=== PATIENT | male | born 1970 | race Caucasian/White ===

== ENCOUNTER 2020-04-27 13:25 | Outpatient (CLI) | payer BC, SELFPAY ==
--- NOTE | 2020-04-27 06:00 | DI.RAD_ITS ---
EXAM: XR PAIN CLINIC CERVICAL SP 2V CLINICAL HISTORY: Dx: Cervical Radiculopathy TECHNIQUE: 2D and realtime digital imaging was performed. CONTRAST MATERIAL: None. COMPARISON: No exams were available for comparison FINDINGS: Fluoroscopy was provided for cervical epidural injections. Radiologist not present. Fluoro time: 25.8 seconds Cumulative dose: 3.09 mGy IMPRESSION:
[2020-04-27 13:40] VITALS: BP 121/92; PULSE 76; RESP 17; TEMP 36.8; O2SAT 98
[2020-04-27] MEDS: Lactated Ringers 1,000 ML 80 ML IV (14:07)
[2020-04-27] MEDS: Midazolam 2 MG/2 ML VIAL IVP ×2 (14:13→14:15)
[2020-04-27 14:22] VITALS: BP 135/80; PULSE 69; RESP 11; O2SAT 94
--- NOTE | 2020-04-27 14:26 | PDOC.PAIN ---
Pain Clinic Procedure Note Procedure Note Procedure Note: Date of Service: April 27, 2030 Cervical Epidural Steroid Injection ISRAEL TIJERINA has been referred to the [facility] for interlaminar cervical epidural steroid injection. COMMENTS: I did review his evaluation in our clinic from 03/13/20 and his recent cervical spine MRI. Dx: Cervical radiculopathy Patient was interviewed and the medical record reviewed. There were no medical, pharmacologic, radiographic or other structural contraindications to attempting fluoroscopically guided epidural steroid injection. Risks and expected side effects as well as potential benefit of the procedure were reviewed and voiced concerns addressed. The printed consent form was signed and witnessed. Standard time-out procedure was performed. The patient was placed in the prone position on the fluoroscopy table and automated blood pressure cuff and pulse oximeter applied. The skin entry point for entering the epidural space by a midline C7-T1 interlaminar approach was identified under fluoroscopy and marked. Following thorough Chlorhexadine preparation of the skin and draping and 1% lidocaine infiltration of the skin entry point and subcutaneous tissues, an 18 gauge Tuohy needle was placed under fluoroscopic guidance and with loss of resistance technique into the epidural space. Upon needle placement and loss of resistance there were no paresthesiae or return of blood or CSF through the needle. 1ml of Omnipaque 240 were injected with clear epidural spread in the A/P, oblique views. 15mg of preservative-free Dexamethasone with 1ml sterile normal saline were injected through the needle with no unusual discomfort expressed. The needle was removed without difficulty. A bandage was placed. Vital signs were stable throughout the procedure and were as recorded in the docflowsheet by the nursing staff. If given, dosages of intravenous drugs for anxiolysis and analgesia were documented in MAR. Follow up plans and appointments were discussed. Post procedure instruction was given as documented in nursing documentation and having met discharge criteria and was discharged from the [facility]. COMMENTS: This procedure can be completed up to 3 times per 12 months if it is found to be effective. He did receive 2 mg of IV Versed prior to this procedure as he was very anxious. Josr Golden DO, MPH Pain Management CC:
[2020-04-27] MEDS: Dexamethasone Sod. Phos./Pres-Free 10 MG/ML VIAL IJ (14:31)
[2020-04-27] MEDS: Omnipaque 240 MG/ML 50 ML BTL IJ (14:31)
== END 2020-04-27 13:26 | disposition home or self-care (01) ==
LOC: PC 13:26
PROVIDERS: Visit Provider Preventive Medicine Occupational Medicine
DX: M54.12 Radiculopathy, cervical region (principal)
CPT/HCPCS: 62321; 72040; J2250; Q9967

== ENCOUNTER 2024-12-20 12:52 | Emergency (ER) | payer MEDICAID, SELFPAY ==
[2024-12-20 13:01] VITALS: BP 144/93; PULSE 89; RESP 15; TEMP 36.9; O2SAT 96
--- NOTE | 2024-12-20 14:30 | DI.US_ITS ---
Exam(s) US SCROTUM EXAM: US SCROTUM CLINICAL HISTORY: pain, swelling. TECHNIQUE: Scrotal ultrasound performed using grayscale, color-flow and spectral Doppler analysis. COMPARISON: No exams were available for comparison FINDINGS: RIGHT TESTICLE: 5.7 x 3.3 x 3.1 cm, enlarged. Echogenicity: Normal. Contour: Smooth. Mass: None seen. Microlithiasis: None. Hydrocele: Large septated hydrocele measuring 7 x 3 x 5.1 cm. Varicocele: None. Hernia: No peristalsing bowel loop identified. Epididymis: Enlarged, hyperemic epididymis. Spermatocele in the head measuring measuring 2.3 cm. Scrotum: Normal. LEFT TESTICLE: 4.7 x 2.2 x 2.3 cm Echogenicity: Normal. Contour: Smooth. Mass: None seen. Microlithiasis: None. Hydrocele: None. Varicocele: None. Hernia: No peristalsing bowel loop identified. Epididymis: Normal. Scrotum: Normal. DOPPLER: Color: Extreme hyperemia to the right testicle and epididymis. Duplex: Bilateral testicular arterial waveforms visualized. IMPRESSION: Right epididymo-orchitis. Septated right hydrocele. DATA REPOSITORY:
--- NOTE | 2024-12-20 15:49 | ED.GENADUL_ITS ---
Discharge Plan Disposition Patient Disposition: Home Condition: Stable Discharge Details Clinical Impression: Acute epididymo-orchitis Primary Care Provider: Unknown,Unknown ED Provider: Jacob Espana Home Meds and New Rx's Prescriptions: New levofloxacin 750 mg tablet 750 mg PO DAILY Qty: 13 0RF morphine 15 mg tablet 15 mg PO BID PRN (Reason: severe pain (scale score 7-10)) Qty: 14 0RF Changed acetaminophen 650 mg Tablet Extended Release 650 mg PO Q8H PRNQty: 0 0RF Discontinued multivitamin Tablet 1 tab PO DAILY gabapentin 600 mg Tablet 600 mg PO TID Rx Instructions: 600 mg AM, 600 mg Noon, 1200 mg HS meloxicam 15 mg Tablet 15 mg PO DAILY Patient Comments: Pt no longer taking this.HE Discharge Instructions Instructions: Epididymitis and orchitis, Morphine (Systemic) Additional Instructions: Please stop current antibiotics cefdinir. Please start new antibiotic Levaquin (levofloxacin). Please take full course of Levaquin (levofloxacin) as prescribed. You were given initial dose here in the emerged ferment. Your next dose is tomorrow. Please follow-up with urology. Call tomorrow to schedule an appointment. Please follow-up with your primary care physician. Return to the emergency department immediately for any worsening or new concerning symptoms. Stand Alone Forms: Portal Information Referrals: Charly Latif MD [ [facility] STAFF PHYSICIAN, Urology] HPI General Mode of arrival: ambulatory . Date/Time Provider Initiated Documentation: 12/20/24 13:10 . Limitations to Documentation: no limitations . Information obtained by: patient . HPI Narrative: HISTORY OF PRESENT ILLNESS This is a 54-year-old male with a history of a congenital single kidney presenting with right testicular swelling. He is accompanied by his sister. The patient was admitted to [facility] on 12/15/2024 due to dehydration and significant enlargement of his right testicle, which was diagnosed as orchitis. He was discharged on 12/17/2024 with a prescription for cefdinir. Despite the treatment, he reports no improvement in his condition and continues to experience pain. He has been compliant with the cefdinir regimen but notes that the swelling in his testicle has not subsided and occasionally appears to increase in size. He reports no recent sexual activity, with the last encounter being two years ago, and has no history of sexually transmitted diseases. He also reports no dysuria or rashes. He is uncertain about any specific bacterial growth from cultures as he left the paperwork at home. He was advised to consult his primary care physician if his symptoms worsened, which they have, prompting him to seek a second opinion. He reports no recent sore throat or respiratory illness. He also reports no abnormal penile discharge. The onset of his symptoms was sudden, occurring on 12/15/2024, and was preceded by a general feeling of malaise and difficulty urinating. He has received all his childhood vaccinations. PAST SURGICAL HISTORY: He has undergone carpal tunnel surgery and had a plate inserted in his wrist. Related Data Home Medications Medication Instructions Recorded Confirmed acetaminophen 650 mg 650 mg PO Q8H PRN #0 tabs 12/20/24 tablet,extended release levofloxacin 750 mg tablet 750 mg PO DAILY #13 tabs morphine 15 mg immediate release 15 mg PO BID PRN vangie re pain 12/20/24 tablet (scale score 7-10) #14 tabs Previous Rx's Medication Instructions Recorded acetaminophen 650 mg 650 mg PO Q8H PRN #0 tabs tablet,extended release levofloxacin 750 mg tablet 750 mg PO DAILY #13 tabs morphine 15 mg immediate release 15 mg PO BID PRN vangie re pain 12/20/24 tablet (scale score 7-10) #14 tabs Allergies Allergy/AdvReac Type Severity Reaction Status Date / Time No Known Allergies Allergy Unverified 12/20/24 13:07 General Stated Complaint: Male Reproductive Problem ROCIO: 3 Review of Systems All systems reviewed & are unremarkable except as noted in HPI and below Constitutional Constitutional: Reports fatigue and Denies fever(s) Genitourinary Genitourinary: Reports as per HPI Endocrine Endocrine: Reports fatigue Exam Const General: cooperative and no acute distress [facility] Head: normocephalic and atraumatic Mouth: moist mucous membranes Eyes Conjunctivae: normal conjunctivae Sclera: normal sclerae Neck Neck: trachea midline and supple Resp Auscultation: clear to auscultation bilaterally, no rales, no rhonchi and no wheezes Cardio Rate: regular rate and not tachycardic Rhythm: regular rhythm GI Palpation: soft, not firm, no guarding, no masses, not rigid and nontender Penis: normal penis Scrotum: scrotal swelling on the right Testes: epididymal tenderness and testicular tenderness on the right Skin General skin exam: no rashes or lesions noted Neuro General: patient alert, patient awake and tone normal Extrem General: no edema Course Vital Signs Vital signs: Vital Signs Temperature 36.9 C 12/20/24 13:01 Pulse 89 12/20/24 13:01 Respiratory Rate 15 12/20/24 13:01 Blood Pressure 144/93 H 12/20/24 13:01 Pulse Oximetry 96 12/20/24 13:01 Temperature 36.9 C 12/20/24 13:01 Temperature Source Oral 12/20/24 13:01 Pulse 89 12/20/24 13:01 Respiratory Rate 15 12/20/24 13:01 Blood Pressure 144/93 H 12/20/24 13:01 Blood Pressure Position Supine 12/20/24 13:01 Pulse Oximetry 96 12/20/24 13:01 Oxygen Delivery Method Room Air 12/20/24 13:01 Oxygen Flow Rate 0 12/20/24 13:01 Pain Level 10 12/20/24 13:01 Medical Decision Making ASSESSMENT AND PLAN Initial Assessment: 54-year-old male with epididymoorchitis, treated with Levaquin and ceftriaxone and [facility] last week, transition to oral cefdinir. Reports no improvement in pain or swelling growth. No associated fever. Differential Diagnosis: - Orchitis: Diagnosed at [facility]. No improvement with cefdinir. Consult urology for further evaluation. - Scrotal abscess - STD: No history of STDs. Not sexually active for 2 years. Unlikely. - Testicular torsion: Sudden onset of pain and swelling. Requires urology consult. ED Course: - Plan to obtain scrotal ultrasound and consult urology [id number] --I obtained and reviewed outside hospital record, discharge summary from [facility] 12/17/2024, ultrasound of the scrotum 12/15/2024 showed no evidence of reticular mass or torsion but did show multiseptated fluid collection in the right hemiscrotum with increased color flow and heterogeneous echotexture throughout the right epididymis, thickened skin of the right scrotum and increased color flow and enlargement the right testicle. Findings consistent with orchitis, epididymitis and active infectious process of the right hemiscrotum. Urine culture grew E. coli sensitive to both Levaquin and ceftriaxone. White blood cell count on 12/17/2024 was 15 which was improved from initial white count on hospitalization 25.9. --Ultrasound was interpreted by radiology:Right epididymo-orchitis. Septated right hydrocele. -- Patient requesting pain medication. Patient unable to take NSAIDs. He will continue Tylenol. Reviewed risk-benefit of opioid treatment the patient and he provided informed consent. 70 course of morphine IR provided. I will give to go pack given late hour and lack of access to his pharmacy tonight. Patient was seen by Dr. Latif who recommends discharge on Levaquin 750 p.o. daily x 2 weeks. He will see patient in follow-up. Clinical Impression: - Epididymoorchitis Dispo: discharge home This document was written with the assistance of PRESTON Prater. The patient consented to its use. PFSH All Active Problems (Updated 12/20/24 @ 17:04 by Jacob Espana MD) Acute epididymo-orchitis (Acute) Right epididymitis (Acute) Medical History Chews tobacco Weight gain Renal agenesis Chronic low back pain Cervical radiculopathy Lumbago with sciatica Depressive disorder Mixed anxiety and depressive disorder Papilloma of tongue Basal cell carcinoma of skin Surgical History History of orthopedic surgery fx left fib/tibia (1992) H/O hernia repair History of back surgery multiple (2016) History of esophagogastroduodenoscopy (EGD) S/P colonoscopy History of surgery chest surgery. 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
[2024-12-20 16:18] LABS: Glucose Negative (Negative)
--- NOTE | 2024-12-20 16:55 | W.UROLOGYCON ---
Date of service: 12/20/24 Time of Service: 16:54 Assessment and Plan Assessment and plan (1) Right epididymitis: Status: Acute Assessment and plan: There is no sign of abcess or infected fluid that would require drainage at this point. I would suggest switching to an antibiotic that might have better urinary tract tissue penetration (like Levaquin or Cipro) for 2 weeks total. I should see him as he is finishing up his antibiotic to evaluate for cause of his UTI History of Present Illness History of Present Illness Chief Complaint: Right epididymo-orchitis Narrative: Chief complaint: Right epididymal orchitis This is a 54-year-old gentleman who does have a past history of a urinary tract infection. He tells me that the infection occurred after urethral catheterization. The infection affected his solitary kidney and he required hospitalization and IV antibiotics. He has not had any subsequent urinary tract infections until late last week. He presented to the [facility] with a swollen, painful right hemiscrotum. He was febrile and his white blood count was significantly elevated. He was started on ceftriaxone and and Levaquin. His urine culture ultimately grew E. coli. An ultrasound showed no evidence of abscess. He was transitioned to oral cefdinir and discharged home after 48 hours of IV antibiotic. He presented to our emergency department with concerns that his swelling and pain are not improving whatsoever. He is not febrile. He has not developed any drainage from the scrotal area. He is not sexually active. Review of Systems Narrative: Chills. No documented fever No vision change or dysphasia No diabetes or thyroid dysfunction No shortness of breath, cough or hemoptysis No chest pain or palpitations No nausea, vomiting, hepatitis, ulcers, jaundice No seizures, strokes or peripheral neuropathy No bleeding disorders or anemia No gout PFSH All Active Problems (Updated 12/20/24 @ 17:04 by Jacob Espana MD) Acute epididymo-orchitis (Acute) Right epididymitis (Acute) Medical History Chews tobacco Weight gain Renal agenesis Chronic low back pain Cervical radiculopathy Lumbago with sciatica Depressive disorder Mixed anxiety and depressive disorder Papilloma of tongue Basal cell carcinoma of skin Surgical History History of orthopedic surgery fx left fib/tibia (1992) H/O hernia repair History of back surgery multiple (2017) History of esophagogastroduodenoscopy (EGD) S/P colonoscopy History of surgery chest surgery. 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 The right hemiscrotum is diffusely enlarged and erythematous. The testis and epididymis are quite hard but there is no fluctuance. He is awake and alert His urinalysis is normal at this time with no evidence of residual urine infection We reviewed his scrotal ultrasound on the PACS system. There is increased blood flow to both the testis and the epididymis on the right side but there is no evidence of abscess. He has a multilocular hydrocele on the right Results Last Vital Signs Temp 36.9 C 12/20/24 13:01 Pulse 89 12/20/24 13:01 Resp 15 12/20/24 13:01 BP 144/93 H 12/20/24 13:01 Pulse Ox 96 12/20/24 13:01 Labs Labs: Laboratory Results - last 24 hr 12/20/24 16:02 Urine Color Yellow Urine Clarity Clear Urine pH 6.0 Ur Specific [place] 1.015 Urine Protein Negative Urine Ketones Negative Urine Blood Negative Urine Nitrite Negative Urine Bilirubin Negative Urine Urobilinogen 1.0 H Ur Leukocyte Esterase Negative Urine Glucose Negative
[2024-12-20] MEDS: levoFLOXacin 500 MG, levoFLOXacin 250 MG 750 MG PO (17:11)
[2024-12-20] MEDS: MORPHine IR 15 MG TAB, 4 TABS/BTL PO (17:22)
[2024-12-22 12:05] LABS: Chlamydia Result Negative (Negative); GC Result Negative (Negative)
== END 2024-12-20 17:23 | disposition home or self-care (01) ==
PROVIDERS: Emergency Provider Student in an Organized Health Care Education/Training Program
DX: N45.3 Epididymo-orchitis (principal)
CPT/HCPCS: 99284 ×2; 87491; 87591; 76870; 81003